=== PATIENT | male | born 1985 | race Two or more races ===

== ENCOUNTER 2025-05-11 21:28 | Emergency (ER) | payer OTHER, SELFPAY ==
--- OUTSIDE RECORDS SUMMARY | 2022-05-21 11:02 | XMS_ITS | Continuity of Care Document ---
Author Organization [facility] Address [address] [place] [address] Phone Care Team Providers Care Internet Marketing Director Name Role Phone Arnulfo Bernstein DO Unavailable Unavailable Allergies, Adverse Reactions, Alerts Substance Reaction Status Criticality No Known Allergies Active No Inform ation Medications Medication Instructions Dosage Effective Dates (start - stop) Status Comments gabapentin 300 mg capsule take 1 capsule by oral route every day 300 MG - Active Daily-Chirag tablet TAKE ONE TABLET BY MOUTH ONCE A DAY WITH FOOD - Active folic acid 1 mg tablet TAKE ONE TABLET BY MOUTH ONCE A DAY - Active gabapentin 300 mg capsule take 1 capsule by oral route every day 300 MG - Active thiamine HCl (vitamin B1) 100 mg tablet 1 tab po qd - Active Protonix 40 mg tablet,delayed release take 1 tablet by oral route every day 40 MG - Active Procedures Procedure Date OFFICE/OUTPATIENT VISIT EST OFFICE/OUTPATIENT VISIT EST OFFICE/OUTPATIENT VISIT EST OFFICE/OUTPATIENT VISIT EST OFFICE/OUTPATIENT VISIT, EST OFFICE/OUTPATIENT VISIT, EST OFFICE/OUTPATIENT VISIT, NEW Advance Directives Directive Yes / No Effective Date File Name No Information Encounters Encounter Description Practice Location Reason(s) For Visit Diagnoses Date Provider Providers Copied on Encounter [facility], [address], [place], [place], [id number], [place] tel:[phone] [facility] No Information 2 Amandeep Arredondo. [address], [place], [id number] , [place]. tel: [phone] [facility], [address], [place], [place], [id number], [place] tel:[phone] [facility] Tele health (chief complaint) Elevated LDL cholesterol levelLocalized swelling, mass and lump, multiple sites 2 Pinky MortonAroldo. [address], [place], [id number] , [place]. tel: [phone] OFFICE/OUTPAT IENT VISIT EST [facility], [address], [place], [place], [id number], [place] tel:[phone] [facility] Tele health (chief complaint) Leg cramps 1 Pinky MortonAroldo. [address], [place], [id number] , [place]. tel: [phone] OFFICE/OUTPAT IENT VISIT EST [facility], [address], [place], [place], [id number], [place] tel:[phone] [facility] Tele health (chief complaint)B lood in stool (chief complaint) Blood in stool 1 Pinky MortonAroldo. [address], [place], [id number] , [place]. tel: [phone] [facility], [address], [place], [place], [id number], [place] tel:[phone] [place] [address] No Information 0 Pinky MortonAroldo. [address], [place], [id number] , [place]. [phone] [facility], [address], [place], [place], [id number], [place] tel:[phone] [facility] No Information 0 Vance Aroldo. [address], [place], [id number] , [place]. tel: [phone] OFFICE/OUTPAT IENT VISIT EST [facility], [address], [place], [place], [id number], [place] tel:[phone] [facility] Tele health (chief complaint) Alcohol withdrawal syndrome with complication 0 Vance Aroldo. [address], [place], [id number] , [place]. tel: [phone] OFFICE/OUTPAT IENT VISIT, EST [facility], [address], [place], [place], [id number], [place] tel:[phone] [facility] results (chief complaint) Testicle pain 0 Vance Aroldo. [address], [place], [id number] , [place]. tel: [phone] OFFICE/OUTPAT IENT VISIT, EST [facility], [address], [place], [place], [id number], [place] tel:[phone] [place] [address] left side pain (chief complaint)A bdominal pain (chief complaint) Left lower quadrant abdominal painTesticle painBlood in stool 0 Vance Aroldo. [address], [place], [id number] , [place]. tel: [phone] OFFICE/OUTPAT IENT VISIT, [facility], [address], [place], [place], [id number], [place] tel:[phone] [facility] bumps all over body (chief complaint) Localized swelling, mass and lump, multiple sites 0 Vance Aroldo. [address], [place], [id number] , [place]. tel: [phone] Family History Family Member Type Diagnosis Age At Onset No Information Payers Payer name Insurance type Covered democrat ID Oxana garcia(s) [facility] [id number] 20 Social History Type Description Quantity Date Captured Comments Sex Male Smoking Status No Information Sexual Orientation Straight or heterosexual Gender Identity Male Chief Complaint And Reason For Visit No Information Reason For Referral Reason For Referral No Information Plan Of Treatment Date Type Action Status Goal Alcohol/chemical dependency screeing. Due on due Goal Hep C Ab due Goal Dental exam. Due on due Goal PHQ9. Due on due Goal HIV screen due Goal Hep C Ab due Goal Alcohol/chemical dependency screeing. Due on due Goal Dental exam. Due on due Goal PHQ9. Due on due Goal HIV screen due Goal PHQ9. Due on due Goal HIV screen due Goal Alcohol/chemical dependency screeing. Due on due Goal Hep C Ab due Goal Dental exam. Due on due Goal PHQ9. Due on due Goal HIV screen due Goal Hep C Ab due Goal Alcohol/chemical dependency screeing. Due on due Goal Dental exam. Due on due Goal HIV screen due Goal Diabetes screeni ng. Due on due Goal Depression scree leoncio. Due on due Goal PHQ9. Due on due Goal Hep C Ab due Goal Lipid Panel. Due on 025 due Goal Dental exam. Due on 020 due Goal Alcohol/chemical dependency screeing. Due on due Referral Ordered: Surgery (related to Localized swelling, mass and lump, multiple sites) ordered Referral Ordered: Gastroenterology (related to Blood in stool) ordered Referral Ordered: Referrals: Gastroenterology. Evaluate and treat ordered Referral Ordered: CT Abdomen and Pelvis W WO Appointment date/timeframe: 08/18/2019 ordered Referral Ordered: Referrals: Surgery. Evaluate and treat ordered Patient Education Heart-Healthy Diet: Care Instructions completed Patient Education Learning About a Healthy Body Image completed Future Order: Lab Order CBC (104), Sent o n: Sent Future Order: Lab Order Comp Met abolic Panel (589), Sent on: Sent Future Order: Lab Order Hemoglob in-A1c (HPLC) (2100), Sent on: Sent Future Order: Lab Order Lipid Pa katerine (309), Sent on: Sent Future Order: Lab Order T-4 Free (420), Sent on: Sent Future Order: Lab Order TSH 3rd Gen (411), Sent on: Sent Future Order: Lab Order H Pylori Ag Stool (1284), Sent on: Sent Future Order: Lab Order AFP Tumo r Marker ([id number]), Sent on: Sent Future Order: Lab Order Hepatiti s Panel Acute (439), Sent on: Sent Future Order: Lab Order HIV-1 an d 2 Antibody (757), Sent on: Sent Future Order: Lab Order Stool Cu lture ([id number]), Sent on: Sent Future Order: Lab Order O&P ([id number]), Sent on: Sent Future Order: Lab Order C Diff T oxins A And/Or B (879), Sent on: Sent Future Order: Lab Order Occult B lood by FRED (2516), Sent on: Sent Future Order: Radiology Order US Scrotal ([id number]), Ordered on: Ordered Future Order: Radiology Order CT Abdomen and Pelvis W WO ([id number]), Ordered on: Ordered History Of Present Illness Encounter Date Complaint History Of Prese nt Illness Tele health Patient confirme d identity through Date of .The patient verbally consented to have their visit with [facility] via Telehealth for their concern.Reason for Telehealth Visit: Home-stay order and/or QuarantineTelehealth Platform used: Zara this visit type clinically appropriate for this patient? YESIs this encounter in place of a xzjr-gu-exex encounter? YESTotal Length of Telehealth Visit: 25 minutes Lab results discussed with patient in detail (see report). LDL 110All questions answeredPT states lumps under skin about 2 inches on both hips and lateral abdominal area from long time, now they are growing in size and painful, he states have hard time sleeping on either side Tele health Patient confirme d identity through Date of .The patient verbally consented to have their visit with [facility] via Telehealth for their concern.Reason for Telehealth Visit: Home-stay order and/or QuarantineTelehealth Platform used: Telephone Is this visit type clinically appropriate for this patient? YESIs this encounter in place of a vfxd-zl-ilkl encounter? YESTotal Length of Telehealth Visit: 25 minutesc.o cramping in legs on/off from few months, he checked her glucose at home its in 150's, asking for labs Blood in stool Onset: 5 months ago. Severity level is 6. Quality: BRBPR w/ bowel movement. It occurs constantly. Associated symptoms include bloating. Pertinent negatives include abdominal distention, abdominal pain, change in bowel habits, constipation, diarrhea, heartburn, nausea, perirectal itching, rectal pain, rectal pain associated with bleeding, vomiting and weight loss. Tele health Patient confirme d identity through Date of .The patient verbally consented to have their visit with [facility] via Telehealth for their concern.Reason for Telehealth Visit: Home-stay order and/or QuarantineTelehealth Platform used: Telephone Is this visit type clinically appropriate for this patient? YESIs this encounter in place of a wfru-hs-qxau encounter? YESTotal Length of Telehealth Visit: 25 minutes [place] [facility] Patient confirme d identity through Date of .The patient verbally consented to have their visit with [facility] via Telehealth for their concern.Reason for Telehealth Visit: Home-stay order and/or QuarantineTelehealth Platform used: Telephone Is this visit type clinically appropriate for this patient? YESIs this encounter in place of a iaub-xe-qpob encounter? YESTotal Length of Telehealth Visit: 15 minutesPt states he self stopped alcohol 2 weeks ago, now he unable to rest bcz his leg hurting and not resting asking med just for legs to rest, denies seizure anxiety or shakiness. results Scrotal ultrasou nd results discussed with patient in detail, see report in order tab for detail. Patient states pain start to get better. Abdominal pain Onset: 1 Week. T he severity of the problem is moderate. Pain scale: 7/10. The symptoms are intermittent. The location is left lower quadrant. The quality of the pain is achy. These symptoms do not occur after meals. Aggravating factors include food. Symptoms are relieved by analgesics. Symptoms are not relieved by proton pump inhibitors or rest. Associated symptoms include back pain, blood in stool and nausea. Pertinent negatives include bloating, change in appetite, constipation, diarrhea, dyspnea, fever, flank pain, rash, vomiting, weight gain and weight loss. left side pain LEFT testicle pa in , feels like lump there for a week bumps all over body Pt seen in w alk-in clinic states have lumps upper body above the knees from last 2 years, keep getting more , now lumps in private area and scrotal area hurts more in sit and walk. Functional Status Date Functional Assessmen t No Information Instructions Date Instruction Additional Infor shu Need excision.RTC 2-3 WEEKS Rela aryan to Localized swelling, mass and lump, multiple sites Advised to maintain a low-fat, low-cholesterol diet. Exercise Related to Elevated LDL cholesterol level exercise, stretching , start gabapentinRTC 2 WEEKS Related to Leg cramps Need specialty eval, ER precautionsavoid constipationlabs orderedRTC 2 WEEKS Related to Blood in stool Advised to stop aaron fritz alcohol. Cut down by one drink daily. Advised to participate in AA or other type of program for alcohol abuse.Medication options discussed, he refused to start disulfiram.RTC 2 week Related to Alcohol withdrawal syndrome with complication Return precautions discussedRTC PRN. Related to Testicle pain er precautions, need ct scan for dx and txt plan Related to Left lower quadrant abdominal pain need ultrasound for dx and txt p vonda Related to Testicle pain ER precautionsneed GI consultRTC 2 DAY Related to Blood in stool Need specialty evall abs orderedAdvised to make aptRTC 1 WEEK Related to Localized swelling, mass and lump, multiple sites Assessments Type Assessment Date No Information Patient Care Teams Name Effective Dates (start - stop) Status Members No Information
--- NOTE | ~2025-05-11 | CT_ITS ---
EXAMINATION: CT abdomen pelvis w con DATE: 05/12/2025 02:04 INDICATION: Low abdominal pain. TECHNIQUE: Computed tomography (CT) of the abdomen and pelvis was performed with 100 mL Omnipaque 350 intravenous contrast. Automated exposure control and iterative reconstruction technique were employed. The dose-length product was 811.11 mGy-cm. COMPARISON: None. FINDINGS: The visualized portions of the lung bases demonstrate mild atelectasis. No pleural effusion. The heart size is normal. No pericardial effusion. The liver, gallbladder, spleen, pancreas, adrenal glands, and kidneys are normal. There are no dilated loops of bowel. There is mild wall thickening of the rectosigmoid. The appendix is normal. There are no pathologically enlarged lymph nodes. There is no free intraperitoneal fluid. There is mild thoracic and lumbar spondylosis. IMPRESSION: 1. Mild wall thickening of the rectosigmoid suspicious for colitis. Reviewed, dictated and finalized at location E.
--- NOTE | 2025-05-11 21:50 | ECG_ITS ---
Test Date: 2025-05-11 21:56:20 Measurements Intervals [place] Rate: 77 P: 21 KS: 170 QRS: -7 QRSD: 103 T: 13 QT: 350 QTc: 397 Interpretive Statements SINUS RHYTHM BORDERLINE R WAVE PROGRESSION, ANTERIOR LEADS BASELINE ARTIFACT- I, III ,AVR, AVL BORDERLINE ECG No previous ECG available for comparison Electronically Signed On 05-12-2025 09:09:41 CDT by Carl Mcnamara D.O.
[2025-05-11 22:17] VITALS: BP 138/88; PULSE 77; RESP 16; TEMP 36.8; O2SAT 100
[2025-05-11 22:55] LABS: Hematocrit 44.0 % (42.0-52.0); Hemoglobin 13.6 g/dL (14.0-18.0); Immature Granulocyte Percent A 0.3 % (0-0.5); Lymphocytes Absolute Auto 4.00 K/mm3 (0.9-3.2); Mean Corpuscular HGB Conc 30.9 g/dl (32-36); Mean Corpuscular Hemoglobin 22.6 pg (26-34); Mean Corpuscular Volume 73.1 fl (80-100); Nucleated Red Blood Cells Absolute Auto 0.000 K/mm3 (0.0-0.012); Nucleated Red Blood Cells Perc 0.0 % (0.0-0.2); Platelet Count Result 388 k/mm3 (150-375); Red Blood Count 6.02 M/mm3 (4.6-6.20); White Blood Count 11.3 K/mm3 (4.5-10.0)
[2025-05-11 23:06] LABS: Add Urine Microscopic? NO; Appearance Urine Clear (Clear); Glucose Urine UA Negative (Negative); Leukocyte Esterase Ur Negative LEU/UL (Negative); Nitrate Urine Negative (Negative); Specific Grav Ur 1.011 (1.001-1.035)
[2025-05-11 23:08] LABS: Alanine Aminotransferase 40 U/L (6-50); Albumin Level 4.9 g/dL (3.5-5.1); Alkaline Phosphatase 64 U/L (38-126); Anion Gap 11 mmol/L (4-12); Aspartate Amino Transferase 30 U/L (17-59); Bilirubin,Total 0.6 mg/dL (0.2-1.3); Blood Urea Nitrogen 10 mg/dL (9-20); Calcium 9.5 mg/dL (8.4-10.2); Carbon Dioxide 27 mmol/L (22-30); Chloride 102 mmol/L (98-107); Estimated Glomerular Filt Rate > 60; Glucose 101 mg/dL (65-110); Lipase 98 U/L (23-300); Magnesium 2.0 mg/dL (1.6-2.3); Potassium 3.9 mmol/L (3.4-5.0); Sodium 140 mmol/L (137-145); Total Protein 8.8 g/dL (6.3-8.2)
[2025-05-11 23:14] LABS: Hypochromasia Occasional; Microcytosis 1+ (NORMAL); Ovalocytes Occasional
[2025-05-11 23:15] LABS: Schistocytes None Seen
--- OUTSIDE RECORDS SUMMARY | 2025-05-12 00:29 | XMS_ITS | Clinical Summary ---
Author Organization [facility] Address [address] [place] [address] Care Team Providers Care Field Auditor Name Role Phone Keith Perez) Primary Care Provider -[id number] Source Comments NOTE: The information displayed by Care Everywhere is extracted from the complete medical record and may not identify all current or past patient conditions.[facility] Resolved Problems Problem Noted Date Diagnosed Date Resolved Date *NEW MEMBER 04/06/2025 Overview (04/06/2025): Membership Terminated Social History Tobacco Use Types Packs/Day Years Used Date Smoking Tobacco: Never Assessed Sex and Gender Information Value Date Recorded Sex Assigned at Not on file Legal Sex Male 2:07 PM PST Gender Identity Not on file Sexual Orientation Not on file Plan of Treatment Health Maintenance Due Date Last Done Comments KATIE SCREEN 2005 HIV SCREEN 2005 TDAP VACCINE (1 - Tdap) 2006 COVID-19 VACCINE (KP) - SHARED DECISION MAKING (1) 07/2024 FLU VACCINE (1) 04/28/2025 Care Teams Field Auditor Relationship Specialty Start Date End Date Keith Perez) [address] [place] [address] [phone] (Work) [phone] (Fax) PCP - General 01/28/25
--- OUTSIDE RECORDS SUMMARY | 2025-05-12 00:29 | XMS_ITS | Data Portability ---
Author Organization - [facility], [place] Address [address] [place], [address] Assessment No assessment recorded. Plan of Treatment Reminders Order Date Submit Date Provider Last Modified By Organization Details Last Modified Time Details Appointments None recorded. Lab rapid SARS CoV 2 Ag, QL IA, respiratory specimen [address], [address] [place] [address], [place], [id number], 2 08:45:40 influenza virus A+B Ag, nasopharyng eal [address], [address] [place] [address], [facility] F, [place], [phone], 2 08:45:40 CBC w/ auto diff [address], [address] [place] [address] F, [place], [address], 2 20:08:35 Referral None recorded. Procedures None recorded. Surgeries None recorded. Imaging None recorded. Medication Orders None recorded. Patient TargetsNo targets recorded. Patient Instructions Encounter Date Encounter Id Patient Instructions Last Modified By Organization Details Last Modified Time 04/15/2022 [id number] WBC 11.2 SLIGHTL Y ELEVATED, DISCUSSED WITH BROTHER. PT HAS BEEN CONSTIPATED FOR THE PAST FEW DAYS HE HAD SMALL BM TODAY, ADVISED TO TAKE MOM PRN AND PLENTY OF FLUIDS. EXAM NORMAL, WITH MILD GENERALIZED TENDERNESS. ADVISED TYLENOL OR IBUPROFEN PRN FEVER. DISCUSSED GOING TO ER FOR WORSENING SYMPTOMS, OTHERWISE [place] IS FROM [place] GOING BACK HOME IN TWO DAYS ADVISED TO FOLLOW-UP WITH PROVIDER NEEDED ONCE HOME. [email or web address] Not available 04/15/2022 20:17:26 Reason for Referral None Reported. Results Created Date Observation Date Name Description Value Unit Range Abnormal Flag Note LastModifiedBy Organization Detail LastModifiedTime 04/15/20 22 04/15/2022 CBC w/ auto diff WBC 11.2 10*3/ uL 4.5-10 .5 abnormal High Not Available [address] [facility] [place], [address], 04/15/2022 20:06:38 04/15/20 22 04/15/2022 CBC w/ auto diff RBC 5.21 10*6/ uL 4.3-5. 8 normal Not Available [address] [facility] [place], [address], 04/15/2022 20:06:38 04/15/20 22 04/15/2022 CBC w/ auto diff HGB 14.9 g/dL 13.5-1 7.5 normal Not Available [address] [facility] [place], [address], 04/15/2022 20:06:38 04/15/20 22 04/15/2022 CBC w/ auto diff HCT 43.9 % 39-50 normal Not Available [address] [facility] [place], [address], 04/15/2022 20:06:38 04/15/20 22 04/15/2022 CBC w/ auto diff MCV 84.3 fL 77-100 normal Not Available [address] [facility] [place], [address], 04/15/2022 20:06:38 04/15/20 22 04/15/2022 CBC w/ auto diff MCH 28.6 pg 27-35 normal Not Available [address] [facility] [facility] [place], [address], 04/15/2022 20:06:38 04/15/20 22 04/15/2022 CBC w/ auto diff MCHC 33.9 g/dL 31-37 normal Not Available [address] [facility] [place], [address], 04/15/2022 20:06:38 04/15/20 22 04/15/2022 CBC w/ auto diff plt 303 10*3/ uL 150-45 0 normal Not Available [address] [facility] [address] [facility] [place], [address], 04/15/2022 20:06:38 04/15/20 22 04/15/2022 CBC w/ auto diff MPV 9.1 fL 9-13 normal Not Available [address] [facility] [address] [facility] [place], [address], 04/15/2022 20:06:38 04/15/20 22 04/15/2022 CBC w/ auto diff RDW 11.7 % 11.6-1 4.6 normal Not Available [address] [facility] [address] [facility] [place], [address], 04/15/2022 20:06:38 04/15/20 22 04/15/2022 CBC w/ auto diff lym% 26.3 % 18-45 normal Not Available [address] [facility] [address] [facility] [place], [address], 04/15/2022 20:06:38 04/15/20 22 04/15/2022 CBC w/ auto diff mid% 8.1 % 0-10 normal Not Available [place] [facility] [address] [facility] [place], [address], 04/15/2022 20:06:38 04/15/20 22 04/15/2022 CBC w/ auto diff gra% 65.6 % 35-80 normal Not Available [address] [facility] [place], [address], 04/15/2022 20:06:38 04/15/20 22 04/15/2022 CBC w/ auto diff lym 2.9 10*3/ uL 1.2-3. 4 normal Not Available [address] [facility] [place], [address], 04/15/2022 20:06:38 04/15/20 22 04/15/2022 CBC w/ auto diff mid 0.9 10*3/ uL 0.1-0. 6 normal Not Available [address] [facility] [place], [address], 04/15/2022 20:06:38 04/15/20 22 04/15/2022 CBC w/ auto diff gra 7.3 10*3/ uL 1.4-6. 5 normal Not Available [address] [facility] [place], [address], 04/15/2022 20:06:38 04/15/20 22 04/15/2022 influ maria luz virus A+B Ag, nasop haryn geal flu A NEGATI VE normal Not Available [address] [facility] [place], [address], 04/15/2022 19:46:18 04/15/20 22 04/15/2022 influ maria luz virus A+B Ag, nasop haryn geal flu B NEGATI VE normal Not Available [address] [facility] [place], [address], 04/15/2022 19:46:18 04/15/20 22 04/15/2022 rapid SARS CoV 2 Ag, QL IA, respi rator y speci men sars negati ve normal Not Available [address] [facility] [address], [place], [address], 04/15/2022 19:46:13 Result Notes None recorded. Medical Equipment None Reported. Allergies No known drug allergies Medications Not known to be on any medication Vitals Date Recorded Body height Body weight Body mass index (BMI) Heart rate Respiratory rate Oxygen saturation Oxygen saturation in Arterial blood by Pulse oximetry Body temperature Systolic And Diastolic Provider Name and Address Organization Details Last Updated DateTime 2 180.34 cm 72203.4 7 g 27.9 kg/m2 95 /min 16 /min 98 % 98 % 98.2 [degF] 120/77 mm[Hg] David Kline [place] [facility] 19:47:52 Social History None recorded. Functional Status None recorded. Mental Status None recorded. Family History Nothing Reported. Medical History Condition Response Coronary Artery Disease N Gout N Thyroid Disease N Atrial Fibrillation N Blood Diseases N Hyperthyroidism N Hypothyroidism N Depression N COPD N Developmental or Behavioral Disorders N Genitourinary Disease N Gastrointestinal Disease N Anxiety Disorder N Muscle, Joint, or Bone Problems N Vision or Eye Problems N Arthritis N Head Injury/Concussion N Chronic ear infections N Congenital Anomalies N Cancer N Stroke N Bladder or Kidney Problems N Hospital Admission other than N High Cholesterol N Liver Disease N Arrhythmia N Headaches N Fibromyalgia N Kidney Disease N Allergies/Hayfever N Heart Problems N Ear or Hearing Problems N Thyroid Problems N ADD/ADHD N Skin Problems N Anemia N Constipation N Mental Illness N Diabetes N Difficulty swallowing N Bedwetting N Seizures/Epilepsy N Myocardial Infarction N Insomnia N Diverticulitis N Asthma N Bipolar Disorder N Sleep Apnea N Sleep Disorder N GERD/Reflux N Heart Disease N Pulmonary Embolism N Hypertension N Osteoporosis N Chicken Pox N Autism Spectrum Disorder (ASD) N Past Encounters Encounter ID Performer Location Encounter Start Date Encounter Closed Date Diagnosis/Indication Diagnosis SNOMED-CT Code Diagnosis ICD10 Code Diagnosis IMO Codes Diagnosis Note [id number] [address] [facility] [place] [address] 04/15/2022 19:30:13 04/18/2022 13:56:08 Viral screening 209696833 Z11.59 Abdominal pain 79175605 R10.9 Constipation 77626254 K5 9.00 Health Concerns Section Related Observation LastModified by Organization Detai ls LastModified Time None Recorded Concern Status LastModified by Organization Details LastModified Time None Recorded Advance Directives Directive None Recorded Payers Insurance Date Sequence Insurance Name Policy Number Policy Nunez Covered Member ID Nunez Member ID Guarantor Name 04/16/2022 1 [facility] [id number] Angel Blackwood [id number] Angel Blackwood Notes Date Note Type Note Provider Name and Address Organization Details Recorded Time 022 text/ht ml Sinusitis TCReported by PatientHPIFor quality, patient reportsworsening. For associated symptoms, patient reportsnasal discharge from __ nostrils,fever/chills,headache __,sore throat, andcoughbut reportsno hemoptysis,no difficulty breathing,no facial pain,no sinus pain,no thick phlegm in throat,not constantly clearing the throat,no nasal passage blockage,no ear fullness,no pain behind the eyes, andno dental pain. For location, patient reportsmaxillary. For onset/timing, patient reportsgradual onsetandinitially started 4days ago. For duration, patient reports4 days. For severity, patient reportsmild. GI/ Symptoms.TReported by PatientAbdominal PainFor quality, patient reportspain,cramping, andaching. For onset/timing, patient reportsworsebut reportsintermittent. For associated symptoms, patient reportsnauseaandconstipationbut reportsno fever,no chills,no blood in the urine,no heartburn,no shortness of breath,no vomiting,no diarrhea,no constipation,no blood in stool, andnormal appetite. For location, patient reportsgeneralized. For severity, patient reportsmoderate. For duration, patient reports4 days. For aggravating factors, patient reportsnothing makes it worse. For alleviating factors, patient reportsnothing gives relief. For pain radiation, patient reportsno radiation.ROS as noted in the HPI MARKUS VILLAFUERTE NP [address] [facility], [place], , [address], [facility] 04/15/2022 20:17:51
--- NOTE | 2025-05-12 00:42 | ED_ITS ---
HPI - Abdominal Pain General Chief Complaint: Abdominal Pain <Carol Tolentino APRN - Last Filed: 05/12/25 03:06> Stated Complaint: Abd pain, dizziness <Carol Tolentino APRN - Last Filed: 05/12/25 03:06> Time Seen by Provider: 05/12/25 00:17 <Carol Tolentino APRN - Last Filed: 05/12/25 03:06> History of Present Illness HPI narrative: Patient is a 39-year-old [place] male who presents to the ER with bilateral posterior heel pain, dizziness, vomiting, and abdominal pain. He reports foot plain started approximately 2-3 days ago but his other symptoms started today. Patient reports he has been able to eat and drink without difficulty. He denies any urinary symptoms, recent fevers, or recent fevers. Patient does endorse intermittent bilateral lower back pain. He denies any medical history relevant to this ER visit, but does report he has had intermittent high blood pressure in the past. <Carol Tolentino APRN - Last Filed: 05/12/25 03:06> Related Data Allergies/Adverse Reactions: Allergies Allergy/AdvReac Type Severity Reaction Status Date / Time No Known Allergies Allergy Verified 05/11/25 22:27 <Carol Tolentino APRN - Last Filed: 05/12/25 03:06> Review of Systems 2 Review of Systems: All systems reviewed & are unremarkable except as noted in HPI and below <Carol Tolentino APRN - Last Filed: 05/12/25 03:06> Exam 2 Narrative: GENERAL: Well appearing, well-nourished, non-toxic, in no acute distress. HEAD: Normocephalic, atraumatic. NECK: Supple. No adenopathy, no masses. RESPIRATORY: Airway patent, respirations nonlabored. Clear to auscultation bilaterally, no rales, rhonchi, wheezing. CARDIOVASCULAR: Regular rate and rhythm without murmurs, rubs, or gallops. Peripheral pulses 2+ and equal bilaterally. ABDOMINAL: Soft, bilateral lower extremity tenderness with palpation, nondistended, no hepatosplenomegaly. Normoactive BS. MUSCULOSKELETAL: Moves all extremities. Strength/ROM intact without gross deformities. Mildly edematous bilateral posterior ankles. SKIN: Warm, dry, normal color. No rashes. NEURO: A&O X3. Speech clear. Cranial nerves II-XII intact. No ataxic movements. PSYCHIATRIC: Appropriate mood and affect. Normal interaction. <Carol Tolentino APRN - Last Filed: 05/12/25 03:06> Course INDUSTRIAL HIRE SALES ASSISTANT/PA Physician Supervision This visit was performed by both a physician and an APC. For this patient encounter, I reviewed the INDUSTRIAL HIRE SALES ASSISTANT or PA documentation, treatment plan, and medical decision making and had [id number] time with this patient. I performed all aspects of the MDM as documented. <Mary Ann Greenwood MD - Last Filed: 05/12/25 03:22> Vital Signs Vital signs: Vital Signs Temperature 98.3 F 05/11/25 22:17 Pulse Rate 77 05/11/25 22:17 Respiratory Rate 16 05/11/25 22:17 Blood Pressure 138/88 05/11/25 22:17 Pulse Oximetry 100 05/11/25 22:17 Oxygen Delivery Room Air 05/11/25 22:17 Temperature 98.3 F 05/11/25 22:17 Pulse Rate 77 05/11/25 22:17 Respiratory Rate 16 05/11/25 22:17 Blood Pressure 138/88 05/11/25 22:17 Pulse Oximetry 100 05/11/25 22:17 Oxygen Delivery Room Air 05/11/25 22:17 <Carol Tolentino TRACK MANAGER - Last Filed: 05/12/25 03:06> Vital Signs Temperature 98.3 F 05/11/25 22:17 Pulse Rate 77 05/11/25 22:17 Respiratory Rate 16 05/11/25 22:17 Blood Pressure 138/88 05/11/25 22:17 Pulse Oximetry 100 05/11/25 22:17 Oxygen Delivery Room Air 05/11/25 22:17 Temperature 98.3 F 05/11/25 22:17 Pulse Rate 77 05/11/25 22:17 Respiratory Rate 16 05/11/25 22:17 Blood Pressure 138/88 05/11/25 22:17 Pulse Oximetry 100 05/11/25 22:17 Oxygen Delivery Room Air 05/11/25 22:17 <Mary Ann Greenwood MD - Last Filed: 05/12/25 03:22> MDM - Abdominal Pain MDM Narrative Medical decision making narrative: Patient is a 39-year-old [place] male who presents to the ER with bilateral posterior heel pain, dizziness, vomiting, and abdominal pain. He reports foot plain started approximately 2-3 days ago but his other symptoms started today. Patient reports he has been able to eat and drink without difficulty. He denies any urinary symptoms, recent fevers, or congestion. Patient does endorse intermittent bilateral lower back pain. He denies any medical history relevant to this ER visit, but does report he has had intermittent high blood pressure in the past. Labs Ordered: CBC, CMP, magnesium, UA, lipase Imaging Ordered: CT abdomen pelvis Medications Ordered: None necessary 0300-Care signed out to Dr. Greenwood pending CT scan results. <Carol Tolentino APRN - Last Filed: 05/12/25 03:06> Patient is a 39-year-old [place] male who presents to the ER with bilateral posterior heel pain, dizziness, vomiting, and abdominal pain. He reports foot plain started approximately 2-3 days ago but his other symptoms started today. Patient reports he has been able to eat and drink without difficulty. He denies any urinary symptoms, recent fevers, or congestion. Patient does endorse intermittent bilateral lower back pain. He denies any medical history relevant to this ER visit, but does report he has had intermittent high blood pressure in the past. Labs Ordered: CBC, CMP, magnesium, UA, lipase Imaging Ordered: CT abdomen pelvis Medications Ordered: None necessary 0300-Care signed out to Dr. Greenwood pending CT scan results. Timo: Patient was signed out to me pending CT abdomen pelvis with IV contrast, CT was obtained revealing no acute process, mild rectal/colonic thickening likely representing infectious/inflammatory process. Patient informed of these findings at bedside instructed follow-up with his primary care physician within the next 3-5 days and provided with a GI referral instructed to call tomorrow to set up a follow-up appointment. Provided strict return precautions instructed return to the ED if any new or worsening symptoms develop. Discharged home in stable condition. <Mary Ann Greenwood MD - Last Filed: 05/12/25 03:22> Differential Diagnosis Differential diagnosis: Likely abdominal pain, calculus of kidney, constipation, diverticulitis, gastroenteritis, pancreatitis and small bowel obstruction <Carol Tolentino APRN - Last Filed: 05/12/25 03:06> Lab Data Result diagrams: 05/11/25 22:48 05/11/25 22:48 <Carol Tolentino APRN - Last Filed: 05/12/25 03:06> Labs: Lab Results 05/11/25 Range/Units 22:48 WBC 11.3 H (4.5-10.0) K/mm3 RBC 6.02 (4.6-6.20) M/mm3 Hgb 13.6 L (14.0-18.0) g/dL Hct 44.0 (42.0-52.0) % MCV 73.1 L (80-100) fl MCH 22.6 L (26-34) pg MCHC 30.9 L (32-36) g/dl RDW 15.1 H (11.5-14.5) % Plt Count 388 H (150-375) k/mm3 MPV 10.6 H (7.4-10.4) fl Immature Gran % (Auto) 0.3 (0-0.5) % Neut % (Auto) 50.9 (45.5-73.1) % Lymph % (Auto) 35.3 (18.3-44.2) % Dale % (Auto) 7.0 (2.6-8.5) % Eos % (Auto) 4.9 H (0-4.4) % Baso % (Auto) 1.6 H (0.2-1.2) % Lymph # (Auto) 4.00 H (0.9-3.2) K/mm3 Dale # (Auto) 0.8 H (0.1-0.6) K/mm3 Eos # (Auto) 0.6 H (0-0.3) K/mm3 Baso # (Auto) 0.2 H (0.0-0.1) K/mm3 Abs Immat Gran (auto) 0.03 (0.00-0.031) K/mm3 Absolute Neuts (auto) 5.8 (1.3-6.7) K/mm3 Absolute Nucleated RBC 0.000 (0.0-0.012) K/mm3 Band Neutrophils % Not Reportable Nucleated RBC % 0.0 (0.0-0.2) % Platelet Estimate Adequate (Adequate) Hypochromasia Occasional Microcytosis 1+ (NORMAL) Ovalocytes Occasional Schistocytes None seen Sodium 140 (137-145) mmol/L Potassium 3.9 (3.4-5.0) mmol/L Chloride 102 (98-107) mmol/L Carbon Dioxide 27 (22-30) mmol/L Anion Gap 11 (4-12) mmol/L BUN 10 (9-20) mg/dL Creatinine 1.02 (0.7-1.3) mg/dL Estim Creat Clear Calc Not Reportable Estimated GFR > 60 (59 - ) Glucose 101 (65-110) mg/dL Calcium 9.5 (8.4-10.2) mg/dL Magnesium 2.0 (1.6-2.3) mg/dL Total Bilirubin 0.6 (0.2-1.3) mg/dL AST 30 (17-59) U/L ALT 40 (6-50) U/L Alkaline Phosphatase 64 (38-126) U/L Total Protein 8.8 H (6.3-8.2) g/dL Albumin 4.9 (3.5-5.1) g/dL Lipase 98 (23-300) U/L Urine Color Yellow (Yellow) Urine Appearance Clear (Clear) Urine pH 5.5 (5.0-9.0) Ur Specific [place] 1.011 (1.001-1.035) Urine Protein Negative (Negative) mg/dL Urine Glucose (UA) Negative (Negative) mg/dL Urine Ketones Negative (Negative) mg/dL Ur Blood (Man) Negative (Negative) Urine Nitrate Negative (Negative) Urine Bilirubin Negative (Negative) Urine Urobilinogen 0.2 (<2.0) mg/dL Leukocyte Esterase Rfl Negative (Negative) JORDANA/UL <Carol Tolentino, TRACK MANAGER - Last Filed: 05/12/25 03:06> Lab Results 05/11/25 Range/Units 22:48 WBC 11.3 H (4.5-10.0) K/mm3 RBC 6.02 (4.6-6.20) M/mm3 Hgb 13.6 L (14.0-18.0) g/dL Hct 44.0 (42.0-52.0) % MCV 73.1 L (80-100) fl MCH 22.6 L (26-34) pg MCHC 30.9 L (32-36) g/dl RDW 15.1 H (11.5-14.5) % Plt Count 388 H (150-375) k/mm3 MPV 10.6 H (7.4-10.4) fl Immature Gran % (Auto) 0.3 (0-0.5) % Neut % (Auto) 50.9 (45.5-73.1) % Lymph % (Auto) 35.3 (18.3-44.2) % Dale % (Auto) 7.0 (2.6-8.5) % Eos % (Auto) 4.9 H (0-4.4) % Baso % (Auto) 1.6 H (0.2-1.2) % Lymph # (Auto) 4.00 H (0.9-3.2) K/mm3 Dale # (Auto) 0.8 H (0.1-0.6) K/mm3 Eos # (Auto) 0.6 H (0-0.3) K/mm3 Baso # (Auto) 0.2 H (0.0-0.1) K/mm3 Abs Immat Gran (auto) 0.03 (0.00-0.031) K/mm3 Absolute Neuts (auto) 5.8 (1.3-6.7) K/mm3 Absolute Nucleated RBC 0.000 (0.0-0.012) K/mm3 Band Neutrophils % Not Reportable Nucleated RBC % 0.0 (0.0-0.2) % Platelet Estimate Adequate (Adequate) Hypochromasia Occasional Microcytosis 1+ (NORMAL) Ovalocytes Occasional Schistocytes None seen Sodium 140 (137-145) mmol/L Potassium 3.9 (3.4-5.0) mmol/L Chloride 102 (98-107) mmol/L Carbon Dioxide 27 (22-30) mmol/L Anion Gap 11 (4-12) mmol/L BUN 10 (9-20) mg/dL Creatinine 1.02 (0.7-1.3) mg/dL Estim Creat Clear Calc Not Reportable Estimated GFR > 60 (59 - ) Glucose 101 (65-110) mg/dL Calcium 9.5 (8.4-10.2) mg/dL Magnesium 2.0 (1.6-2.3) mg/dL Total Bilirubin 0.6 (0.2-1.3) mg/dL AST 30 (17-59) U/L ALT 40 (6-50) U/L Alkaline Phosphatase 64 (38-126) U/L Total Protein 8.8 H (6.3-8.2) g/dL Albumin 4.9 (3.5-5.1) g/dL Lipase 98 (23-300) U/L Urine Color Yellow (Yellow) Urine Appearance Clear (Clear) Urine pH 5.5 (5.0-9.0) Ur Specific [place] 1.011 (1.001-1.035) Urine Protein Negative (Negative) mg/dL Urine Glucose (UA) Negative (Negative) mg/dL Urine Ketones Negative (Negative) mg/dL Ur Blood (Man) Negative (Negative) Urine Nitrate Negative (Negative) Urine Bilirubin Negative (Negative) Urine Urobilinogen 0.2 (<2.0) mg/dL Leukocyte Esterase Rfl Negative (Negative) JORDANA/UL <Mary Ann Greenwood MD - Last Filed: 05/12/25 03:22> Discharge Plan Discharge Clinical Impression: Abdominal pain, Gastroenteritis <Carol Tolentino APRN - Last Filed: 05/12/25 03:06> Patient Disposition: Home <Carol Tolentino APRN - Last Filed: 05/12/25 03:06> Condition: Improved <Carol Tolentino APRN - Last Filed: 05/12/25 03:06> Instructions: Antibiotic Form, Gastroenteritis (DC), Abdominal Pain (ED) <Carol Tolentino APRN - Last Filed: 05/12/25 03:06> Additional Instructions: Please follow-up with your family doctor within the next 3-5 days. Return to emergency department if any new or worsening symptoms develop. You also provided with a GI referral instructed to call to set up a follow-up appointment. <Carol Tolentino APRN - Last Filed: 05/12/25 03:06> Patient Language: Comoran <Carol Tolentino APRN - Last Filed: 05/12/25 03:06> Follow-up/Referrals: PHYSICIAN,FARMWORKER [Primary Care Provider, Internal Medicine] Reagan Esparza MD [Physician, Gastroenterology] - 3 Days <Carol Tolentino APRN - Last Filed: 05/12/25 03:06> Time of Disposition: 03:20 <Carol Tolentino APRN - Last Filed: 05/12/25 03:06> 03:20 <Mary Ann Greenwood MD - Last Filed: 05/12/25 03:22>
[2025-05-12 04:12] VITALS: BP 128/93; PULSE 88; RESP 19; O2SAT 98
[2025-05-12 04:13] VITALS: BP 128/93; PULSE 88; RESP 19; O2SAT 98
== END 2025-05-12 04:16 | disposition home or self-care (01) ==
PROVIDERS: Emergency Medicine; Emergency Provider Registered Nurse
DX: K52.9 Noninfective gastroenteritis and colitis, unspecified (principal); R94.31 Abnormal electrocardiogram [ECG] [EKG]
CPT/HCPCS: 36415; 74177; 80053; 81003; 83690; 83735; 85025; 93005; 99284; Q9967